=== PATIENT | male | born 1985 | race Caucasian/White ===

== ENCOUNTER 2020-05-01 03:24 | Emergency (ER) | payer OTHER, SELFPAY ==
[2020-05-01] VITALS (19 sets, daily range): BP systolic 139–172; BP diastolic 78–109; PULSE 76–90; RESP 18–33; TEMP 32.9–36.2; O2SAT 96–98
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
[2020-05-01] MEDS: SODIUM CHLORIDE 0.9% 1,000 ML 150 ML IV (03:59)
[2020-05-01] MEDS: propofoL 1,000 MG/100 ML VIAL 10 MG IV (03:59)
[2020-05-01 04:07] LABS: Add Manual Diff / Slide Review NO; Basophils Absolute Auto 100 /uL (0-100); Basophils Percent Auto 0.4 % (0-2); Eosinophils Absolute Auto 100 /uL (0-450); Eosinophils Percent Auto 0.7 % (2-4); Hematocrit 35.2 % (41-53); Hemoglobin 11.6 g/dL (13.5-17.5); Lymphocytes Absolute Auto 1200 /uL (1100-4500); Lymphocytes Percent Auto 7.3 % (25-40); Mean Corpuscular HGB Conc 32.9 % (30-36); Mean Corpuscular Hemoglobin 27.9 PG (26-34); Monocytes Absolute Auto 1200 /uL (0-900); Monocytes Percent Auto 7.4 % (3-14); Neutrophils Absolute Auto 13300 /uL (1500-7000); Neutrophils Percent Auto 84.2 % (50-75); Platelet Count 285 X10^3/uL (150-400); Red Blood Cell Count 4.14 X10^6/uL (4.5-5.9); Red Cell Distribution Width 13.6 % (11.6-14.8); White Blood Cell Count 15.9 X10^3/uL (4.5-11.0)
[2020-05-01 04:12] LABS: Alanine Aminotransferase 19 IU/L (<50); Albumin 3.8 g/dL (3.5-5.0); Albumin Globulin Ratio 1.5 (1.0-2.8); Alkaline Phosphatase 77 U/L (38-126); Aspartate Aminotransferase 30 IU/L (17-59); BUN Creatinine Ratio 22.2 (6-22); Bilirubin Total 0.4 mg/dL (0.2-1.3); Blood Urea Nitrogen 16 mg/dL (9-20); Calcium 8.2 mg/dL (8.4-10.2); Carbon Dioxide 29 mmol/L (22-32); Chloride 102 mmol/L (98-107); Estimated Glomerular Filt Rate > 60.0 mL/min (>60); Globulin 2.6 g/dL (1.7-4.1); Glucose 158 mg/dL (70-100); HEMOLYSIS 19 (0-50); Lipase 45 U/L (23-300); Potassium 3.3 mmol/L (3.4-5.1); Sodium 135 mmol/L (137-145); Total Protein 6.4 g/dL (6.3-8.2)
[2020-05-01 04:17] LABS: UR Morphine/Opiate cutoff 300 Positive (Negative); Ur Creatinine 20 (Normal); Ur Specific Gravity 1.025 (Normal); Urine Amphetamines Positive (Negative); Urine Cocaine Negative (Negative); Urine Methamphetamines Positive (Negative); Urine Tetrahydrocannabinol Negative (Negative); Urine pH 5 (Normal)
[2020-05-01 04:18] LABS: Urine Barbiturates Negative (Negative); Urine Benzodiazepines Positive (Negative); Urine MDMA Positive (Negative); Urine Methadone Negative (Negative); Urine Oxycodone Negative (Negative); Urine Phencyclidine Negative (Negative); Urine Tricyclic Antidepressant Negative (Negative)
[2020-05-01] MEDS: propofoL 1,000 MG/100 ML VIAL 2.136 MG IV (04:34)
[2020-05-01 04:37] LABS: Ethanol (ETOH) < 10 mg/dL
[2020-05-01] MEDS: levETIRAcetam 1,500 MG in SODIUM CHLORIDE 0.9% 100 ML 460 ML IV (04:46)
[2020-05-01 04:58] LABS: Fractionated Inspired Oxygen 30; HCO3 ABG 27 mmol/L (22-26); Oxygen Saturation ABG 97 % (95-100); PCO2 ABG 37.3 mmHg (35-45); PO2 ABG 86 mmHg (80-100); TCO2 ABG 28 mmol/L (21-31); pH ABG 7.47 (7.35-7.45)
--- NOTE | 2020-05-01 05:08 | PC.NURSE ---
[facility] at bedside to receive report and transport patient to [facility].
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
== END 2020-05-01 05:50 | disposition short-term general hospital (02) ==
PROVIDERS: Emergency Provider Emergency Medicine; PCP Internal Medicine
DX: S06.5X9A Traumatic subdural hemorrhage with loss of consciousness of unspecified duration, initial encounter (principal); R56.9 Unspecified convulsions; Y09 Assault by unspecified means
CPT/HCPCS: 36415; 36600; 51701; 70450; 71260; 72125; 74177; 80053; 80305; 80320; 82805; 82962; 83690; 85025; 86850; 86900; 86901; 93005; 94799; 96365; 99285; 99291; 99292; G0390; J1953; J2704; Q9967

== ENCOUNTER 2020-06-18 22:32 | Emergency (ER) | payer OTHER, MEDICAID, SELFPAY ==
[2020-05-01 04:00] VITALS: PULSE 81; RESP 22; O2SAT 97
[2020-06-18 22:41] VITALS: BP 104/71; PULSE 102; RESP 17; TEMP 37.3; O2SAT 100; BMI 20.7
[2020-06-18 23:32] VITALS: BP 124/63; PULSE 103; TEMP 36.6; O2SAT 100
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
--- NOTE | 2020-06-19 00:43 | DI.CT.S_ITS ---
PROCEDURE: CT HEAD/BRAIN WO CON INDICATIONS: pressure prior bleed with aneurysms and cervical stef TECHNIQUE: Noncontrast 4.5 mm thick angled axial sections acquired from the foramen magnum to the vertex, with coronal and sagittal reformats. For radiation dose reduction, the following was used: automated exposure control, adjustment of mA and/or kV according to patient size. COMPARISON: [facility], CT, CT HEAD/BRAIN WO CON, 05/01/2020, 2:28. FINDINGS: Image quality: Exam is somewhat limited given artifact from adjacent hardware along the posterior calvarium. This is worse at the skull base and throughout the cerebellum/brainstem. Brain/CSF spaces: Patient is status post right frontal approach ventriculoperitoneal shunt placement with the tip within the frontal horn of the left lateral ventricle. There is decreased prominence of the lateral ventricle from prior examination with resolution of previously noted hydrocephalus. The previously noted subdural hematoma within the posterior fossa is not well appreciated on today's examination, however evaluation is somewhat limited given artifact from adjacent hardware. No definite acute intracranial hemorrhage. There is mild postsurgical changes of the right frontal lobe adjacent to the catheter. Brain parenchyma is otherwise normal for patient's age. No midline shift or mass effect. Skull and face: Postsurgical changes of posterior fusion of the occiput through the spine with occipital craniotomy. Sinuses: Visualized sinuses and mastoids are clear. IMPRESSION: No acute intra cranial findings. Status post right frontal approach ventriculoperitoneal shunt placement with resolution of hydrocephalus. Postsurgical changes of acceptable craniotomy and cranial cervical fusion. Agree with preliminary report. Dictated by: Lee Gallegos D.O. on 06/19/2020 at 8:32 Approved by: Lee Gallegos D.O. on 06/19/2020 at 8:40
--- NOTE | 2020-06-19 00:43 | DI.RAD.S_ITS ---
PROCEDURE: XR CERVICAL SPINE 2V OR 3V INDICATIONS: Neck pain-stef placement TECHNIQUE: 3 view(s) of the cervical spine were acquired. COMPARISON: [facility], CT, CT CERVICAL SPINE WO CON, 05/01/2020, 2:28. FINDINGS: Bones: No cervical ribs. Patient is status post posterior fusion from the occiput through the superior thoracic spine. No evidence of hardware complication. Mild degenerative changes of the cervical spine with endplate degenerative changes of the midcervical spine and mild intervertebral disc space loss noted C5-C6. The lateral masses of C1 appear intact on the odontoid view given overlap of surgical hardware. No suspicious bony lesions. Soft tissues: No prevertebral soft tissue swelling. Right-sided shunt catheter appears intact within the imaged portions. IMPRESSION: Postsurgical changes as described above without evidence of complication. No acute osseous abnormality. Agree with preliminary report Dictated by: Lee Gallegos D.O. on 06/19/2020 at 7:01 Approved by: Lee Gallegos D.O. on 06/19/2020 at 7:17
[2020-06-19 02:09] VITALS: BP 106/75; PULSE 98; RESP 16; O2SAT 100
== END 2020-06-19 02:10 | disposition home or self-care (01) ==
PROVIDERS: Emergency Provider Emergency Medicine; PCP Internal Medicine
DX: I95.1 Orthostatic hypotension (principal); R51.9 Headache, unspecified; R31.9 Hematuria, unspecified; M54.2 Cervicalgia
CPT/HCPCS: 70450; 72040; 99284

== ENCOUNTER 2021-04-22 10:00 | Emergency (ER) | payer OTHER, MEDICAID, SELFPAY ==
[2020-05-01 04:00] VITALS: PULSE 81; RESP 22; O2SAT 97
[2021-04-22 10:05] VITALS: BP 134/83; PULSE 105; RESP 14; TEMP 36.8; O2SAT 100; BMI 20.3
[2021-04-22] MEDS: LIDO 1%/SOD BICARB 8.4% (10ML) 10 ML SYRINGE INJ (12:40)
--- NOTE | 2021-04-22 12:42 | ED_ITS ---
HPI - Wound/Laceration <Chilango Alexander PA-C - Last Filed: 04/22/21 18:32> General Chief Complaint: Wound/Laceration Stated Complaint: SLICED FINGER Time Seen by Provider: 04/22/21 11:53 Source: patient Mode of arrival: Ambulatory History of Present Illness HPI narrative: Patient is a 35-year-old male presenting to the emergency department today for an evaluation of a right index finger laceration. Patient states that he cut his right index finger on a reasonably this morning attempting to open up a can of paint for a house project. He states that he was able to get the bleeding controlled at home and reports that his tetanus shot is up-to-date. Of note, patient denies pain or injury elsewhere. No fever, chills, chest pain, cough, shortness of breath, nausea, vomiting, diarrhea, abdominal pain, dysuria, hematuria, numbness and tingling in the upper extremities, or any other concerning symptoms reported. No further concerns were voiced at this time. Related Data Allergies Allergy/AdvReac Type Severity Reaction Status Date / Time No Known Drug Allergies Allergy Verified 04/22/21 10:10 Review of Systems <Chilango Alexander PA-C - Last Filed: 04/22/21 18:32> Constitutional Constitutional: Denies chills, Denies fatigue, Denies fever(s), Denies frequent falls, Denies lethargy and Denies weakness Eyes Eyes: Denies loss of vision ENT Ears, Nose, Mouth, and Throat: Denies dizziness and Denies neck pain Cardiovascular Cardiovascular: Denies chest pain, Denies irregular heart rhythm, Denies lightheadedness, Denies palpitations, Denies dyspnea, Denies dyspnea on exertion and Denies orthopnea Respiratory Respiratory: Denies cough, Denies dyspnea, Denies dyspnea on exertion and Denies wheezing Gastrointestinal Gastrointestinal: Denies abdominal pain, Denies change in bowel habits, Denies diarrhea, Denies nausea and Denies vomiting Genitourinary Genitourinary: Denies hematuria, Denies flank pain, Denies urinary incontinence and Denies urinary urgency Musculoskeletal Musculoskeletal: Denies back pain, Denies muscle weakness, Denies neck pain, Denies numbness and Denies tingling Integumentary/Breasts Skin/Breast: Denies pruritus, Denies erythema, Denies rash and Reports wounds (Laceration to right index finger) Neurologic Neurologic: Denies behavioral changes, Denies confusion, Denies dizziness, Denies frequent falls, Denies loss of vision, Denies numbness, Denies tingling and Denies weakness Psychiatric Psychiatric: Denies behavioral changes and Denies confusion Endocrine Endocrine: Denies fatigue and Denies palpitations Allergic/Immunologic Allergic/Immunologic: Denies wheezing Patient History <Chilango Alexander PA-C - Last Filed: 04/22/21 18:32> Social History Smoking Status: Current every day smoker Smoking Status: Current every day smoker alcohol intake frequency: holidays/special occasions only Substance Use Type: does not use Exam <Chilango Alexander PA-C - Last Filed: 04/22/21 18:32> Narrative Exam Narrative: GENERAL: 35 year old patient appears stated age. Well-developed patient, in no acute distress. HEAD: Atraumatic. Normocephalic. EYES: Pupils equal round and reactive. Extraocular motions intact. No scleral icterus. No injection or drainage. ENT: Nose without bleeding, purulent drainage. Throat without erythema, tonsillar hypertrophy or exudate. Airway patent. NECK: Trachea midline. Non tender CARDIOVASCULAR: Regular rate and rhythm without murmurs, gallops, or rubs. RESPIRATORY: Clear to auscultation. Breath sounds equal bilaterally. No wheezes, rales, or rhonchi. GASTROINTESTINAL: Abdomen soft, non-tender, nondistended. EXTREMITIES: No edema or joint tenderness. BACK: Nontender without deformity or crepitance. No flank tenderness. NEURO: AOx3. SKIN: No rash or erythema of visible areas. Linear laceration noted to the right index finger distal to the D IP joint. No active drainage noted or foreign body retained within the laceration. Laceration does not involve the nail bed. No deep tissue structures of. Involved within the laceration. Initial Vital Signs Initial Vital Signs: Vital Signs Temperature 98.3 F 04/22/21 10:05 Pulse Rate 105 H 04/22/21 10:05 Respiratory Rate 14 04/22/21 10:05 Blood Pressure 134/83 04/22/21 10:05 Pulse Oximetry 100 04/22/21 10:05 <Nevin Parnell DO - Last Filed: 04/23/21 08:13> Initial Vital Signs Initial Vital Signs: Vital Signs Temperature 98.3 F 04/22/21 10:05 Pulse Rate 105 H 04/22/21 10:05 Respiratory Rate 14 04/22/21 10:05 Blood Pressure 134/83 04/22/21 10:05 Pulse Oximetry 100 04/22/21 10:05 Procedures <CULLEN Braun Last Filed: 04/22/21 18:32> Laceration Repair Laceration 1: Time of procedure: 12:42 Site: hand (Right index finger) Side (If applicable): right Size (cm): 2.5 Description: linear Depth: simple, single layer Local Anesthetic: lidocaine 1% Amount of anesthesia used (mL): 3 Pre-repair: wound explored, irrigated extensively and deep structures intact Skin layer closed with: nylon Size (cm): 5-0 Number of sutures: 5 Technique: simple, interrupted Course <CULLEN Braun Last Filed: 04/22/21 18:32> Course Course Narrative: Laceration prepped with chlorhexidine and irrigated with normal saline. 1% buffered lidocaine ordered for anesthesia. Orders Ordered: Discontinued Medications Lidocaine/Sodium Bicarbonate (Lido 1%/Sod Bicarb 8.4% (10ml) 10 Ml Syringe) 10 ml INJ NOW ONE Stop: 04/22/21 12:07 Last Admin: 04/22/21 12:40 Dose: 10 ml Documented by: HEATH Vital Signs Vital signs: Vital Signs - 8 hr 04/22/21 12:55 Pulse Rate 85 Respiratory Rate 18 Blood Pressure 106/68 Pulse Oximetry 100 <Nevin Parnell DO - Last Filed: 04/23/21 08:13> Orders Ordered: Discontinued Medications Lidocaine/Sodium Bicarbonate (Lido 1%/Sod Bicarb 8.4% (10ml) 10 Ml Syringe) 10 ml INJ NOW ONE Stop: 04/22/21 12:07 Last Admin: 04/22/21 12:40 Dose: 10 ml Documented by: HEATH Vital Signs Vital signs: Vital Signs - 8 hr 04/22/21 12:55 Pulse Rate 85 Respiratory Rate 18 Blood Pressure 106/68 Pulse Oximetry 100 MDM - Wound/Laceration <CULLEN Braun Last Filed: 04/22/21 18:32> MDM Narrative Medical decision making narrative: Differential diagnosis to consider but not limited to superficial skin laceration versus deep tissue laceration versus abscess versus tendon rupture. Overall, physical examination was reassuring as no deep tissue involvement is apparent there is no foreign body retained within the laceration. Wound was cleaned and irrigated extensively and all deep tissue structures appear intact. Wound edges were approximated closely with 5 nylon sutures size 5-0. Patient tolerated procedure well. Laceration care instructions were provided to the patient, including cleaning the laceration site with soap and water and keeping the area covered while working. I instructed the patient to have the sutures removed within 10-14 days either here in the emergency department, at urgent care, or with his primary care provider. Patient expresses understanding and agrees to plan. He states that this time he is comfortable being discharged home is stable for discharge. Strict return precautions were discussed with the patient prior to discharge. Discharge Plan Departure Patient Disposition: Home Clinical Impression: Laceration of right index finger Instructions: DI for Laceration Repair Activity Restrictions/Additional Instructions: *You have been diagnosed with right index finger laceration *What to do: *Please continue to take your regular medications as directed. [ ] New medication prescriptions sent to your pharmacy: [ ] [ ] New medication written as a paper prescription [X] No new medications given You are evaluated in the emergency department today for a right finger laceration. The laceration was closed with 5 nylon sutures. The sutures should remain in place for 10 14 days, they can be removed here in the ER, at urgent care, or with your primary care provider. Please refrain from soaking the laceration site until it is completely healed. A additionally, please do not place any topical ointments such as triple antibiotic ointment over the laceration site. He can keep the area clean with soap and water and patted dry. I recommended if he rebleeds be working that you keep the laceration site covered until it is completely healed. Please follow-up with the primary care provider within the next 2-3 days for further evaluation. Please do not hesitate to return to the emergency department if you experience fever, discharge from the laceration site, increased swelling from around the laceration site, or any other concerning symptoms. *Please follow up with your primary care provider in 2-3 days, call for an appointment. Let them know you were seen in the Emergency Department and that we ask that you be seen in follow up. We will electronically transmit a record of today's note if your PCP is in our system *If you do not have a primary care provider please contact the [facility] Resource line at [phone]. They will ask some questions about your medical history and help get you set up with a doctor in the community. *Return to Emergency Department if you should have any new, worsening or concerning symptoms, such as fever greater than 101 F, shaking chills, worsening pain, persistent vomiting or other bothersome symptoms. Referrals: Taj Regalado MD [Primary Care Provider] - <Nevin aPrnell DO - Last Filed: 04/23/21 08:13> Cosign ED Attending Cosnnekaature Attestation: I was immediately available in the department for consultation. Documentation has been reviewed.
[2021-04-22 12:55] VITALS: BP 106/68; PULSE 85; RESP 18; O2SAT 100
== END 2021-04-22 12:59 | disposition home or self-care (01) ==
PROVIDERS: Emergency Provider Physician Assistant; PCP Internal Medicine
DX: S61.210A Laceration without foreign body of right index finger without damage to nail, initial encounter (principal); W26.9XXA Contact with unspecified sharp object(s), initial encounter
CPT/HCPCS: 12001; 99283

== ENCOUNTER 2021-05-19 11:02 | Emergency (ER) | payer OTHER, MEDICAID, SELFPAY ==
[2020-05-01 04:00] VITALS: PULSE 81; RESP 22; O2SAT 97
[2021-05-19] VITALS (18 sets, daily range): BP systolic 104–201; BP diastolic 64–100; PULSE 30–115; RESP 18–54; TEMP 36.6–38.3; O2SAT 70–100; BMI 19.3
--- NOTE | 2021-05-19 11:11 | ED.HA ---
HPI - Headache General Chief Complaint: Trauma Stated Complaint: Headache Time Seen by Provider: 05/19/21 11:03 History of Present Illness HPI Narrative: 35-year-old male with prior head and C-spine injury requiring operative intervention at [facility] in April of 2020 presents with EMS for evaluation of headache, vomiting, neck pain and not feeling well for the past week. He states his symptoms started when he was working on a car and the murray of the car hit him on the head. He had a loss of consciousness and has had trouble ever since. He states his headache is severe and generalized in nature, worse with eyes open. He has neck pain and feels like something with his surgery may be abnormal. He denies any numbness, tingling or weakness in his extremities. He denies any loss of control of bowel or bladder. He has no chest pain or shortness of breath. He is activated as a modified trauma. Related Data Previous Rx's Medication Instructions Recorded amoxicillin 875 mg-potassium 1 tab PO Q12H #20 tab 05/19/21 clavulanate 125 mg tablet ketorolac 10 mg tablet 10 mg PO Q6H PRN #14 tab 05/19/21 Allergies Allergy/AdvReac Type Severity Reaction Status Date / Time No Known Drug Allergies Allergy Verified 04/22/21 10:10 Review of Systems Review of Systems Narrative: GENERAL: Denies chills, fatigue, malaise, fever, sweats. HEENT: Denies sinus pain, ear pain, sore throat, difficulty swallowing, dizziness. RESPIRATORY: Denies dyspnea, cough, wheezing, hemoptysis, sputum. CARDIOVASCULAR: Denies chest pain, palpitations, orthopnea, edema, GASTROINTESTINAL: See HPI : Denies dysuria, frequency, incontinence, hematuria, urinary retention. MUSCULOSKELETAL: See HPI SKIN: Denies rash, skin lesions, or other NEUROLOGIC: See HPI PSYCHIATRIC: No concerning psychosocial issues. 12 point review of systems is negative except for those stated above Patient History Social History Smoking Status: Current every day smoker Smoking Status: Current every day smoker alcohol intake frequency: holidays/special occasions only Substance Use Type: does not use Exam Narrative Exam Narrative: GENERAL: [35] year old patient appears stated age. He appears unwell, holding an emesis bag, diaphoretic. GCS 15 HEAD: Atraumatic. Normocephalic. EYES: Pupils equal round and reactive. No hyphema Extraocular motions intact. No scleral icterus. No injection or drainage. ENT: Nose without bleeding, purulent drainage. Throat without erythema, tonsillar hypertrophy or exudate. Airway patent. NECK: Trachea midline. Generalized tenderness, no obvious crepitance, no change with axial load, no step-offs CARDIOVASCULAR: Regular rate and rhythm without murmurs, gallops, or rubs. RESPIRATORY: Clear to auscultation. Breath sounds equal bilaterally. No wheezes, rales, or rhonchi. GASTROINTESTINAL: Abdomen soft, non-tender, nondistended. EXTREMITIES: No edema or joint tenderness. BACK: Nontender without deformity or crepitance. No flank tenderness. NEURO: AOx3. SKIN: No rash or erythema of visible areas Initial Vital Signs Initial Vital Signs: Vital Signs Temperature 101 F H 05/19/21 11:03 Pulse Rate 64 05/19/21 11:03 Respiratory Rate 18 05/19/21 11:03 Blood Pressure 201/100 H 05/19/21 11:03 Pulse Oximetry 100 05/19/21 11:03 Course Orders Ordered: ED Orders 05/19/21 11:12 CT cervical spine wo con Stat CT thoracic spine wo con Stat 05/19/21 11:28 Ictotest Urine Stat Urinalysis and Microscopic Stat Urine Culture Stat Urine Drug Screen, Rapid Stat 05/19/21 11:50 Complete Blood Count AUTO DIFF Stat Comprehensive Metabolic Panel Stat Lipase Stat Magnesium Stat 05/19/21 12:02 CT head/brain wo con Stat 05/19/21 12:30 COVID19 -Nasal swab/Pre-Proc Stat 05/19/21 13:18 Chest [XR chest 1V] Stat 05/19/21 14:29 CT chest abd pel w con Stat 05/19/21 16:14 Throat Culture Stat Discontinued Medications Dexamethasone (Dexamethasone 10 Mg/Ml Vial) 10 mg IV NOW ONE Stop: 05/19/21 16:28 Last Admin: 05/19/21 16:37 Dose: 10 mg Documented by: MILANA Sodium Chloride (Normal Saline 0.9%) 1,000 mls @ 1,000 mls/hr IV BOLUS ONE Stop: 05/19/21 12:11 Last Infusion: 05/19/21 14:22 Dose: 0 mls/hr Documented by: Admin: 05/19/21 11:45 Dose: 1,000 mls/hr Documented by: BESSY Sodium Chloride (Normal Saline 0.9%) 1,000 mls @ 1,000 mls/hr IV BOLUS ONE Stop: 05/19/21 14:15 Last Infusion: 05/19/21 16:40 Dose: 0 mls/hr Documented by: Admin: 05/19/21 14:23 Dose: 1,000 mls/hr Documented by: MILANA Sodium Chloride (Normal Saline 0.9%) 1,000 mls @ 1,000 mls/hr IV BOLUS ONE Stop: 05/19/21 17:26 Last Infusion: 05/19/21 17:34 Dose: 0 mls/hr Documented by: Admin: 05/19/21 16:36 Dose: 1,000 mls/hr Documented by: MILANA Ketorolac Tromethamine (Ketorolac 30 Mg/Ml Vial) 15 mg IV NOW ONE Stop: 05/19/21 13:17 Last Admin: 05/19/21 13:22 Dose: 15 mg Documented by: MILANA Ketorolac Tromethamine (Ketorolac 30 Mg/Ml Vial) 15 mg IV NOW ONE Stop: 05/19/21 16:28 Last Admin: 05/19/21 16:37 Dose: 15 mg Documented by: MILANA Consultations Consultation #1: head CT discussed with exploration geologist Neurosurgery at [facility]. He has reviewed the head CT and states there is no concern, no evidence of shunt malfunction Vital Signs Vital signs: Vital Signs - 8 hr 05/19/21 11:03 05/19/21 11:11 05/19/21 11:38 Temperature 101 F H Pulse Rate 64 30 L 114 H Respiratory Rate 18 Blood Pressure 201/100 H Pulse Oximetry 100 95 96 05/19/21 11:40 05/19/21 12:00 05/19/21 12:11 Temperature Pulse Rate 111 H 111 H 109 H Respiratory Rate 24 Blood Pressure 155/89 H 135/75 Pulse Oximetry 97 98 98 05/19/21 12:30 05/19/21 13:00 05/19/21 13:30 Temperature 97.8 F Pulse Rate 106 H 115 H 94 H Respiratory Rate 22 Blood Pressure 131/89 128/64 135/77 Pulse Oximetry 98 96 97 05/19/21 14:00 05/19/21 14:30 05/19/21 15:03 Temperature Pulse Rate 85 76 65 Respiratory Rate 49 H 54 H Blood Pressure 104/65 108/64 Pulse Oximetry 97 99 70 L 05/19/21 15:19 05/19/21 15:30 05/19/21 16:00 Temperature Pulse Rate 88 73 84 Respiratory Rate 21 24 Blood Pressure 120/67 119/73 129/76 Pulse Oximetry 96 100 99 05/19/21 16:30 05/19/21 17:00 05/19/21 17:30 Temperature Pulse Rate 85 87 106 H Respiratory Rate Blood Pressure 126/85 134/80 143/87 H Pulse Oximetry 99 100 97 MDM - Headache Lab Data Result diagrams: 05/19/21 11:50 05/19/21 11:50 Labs: Lab Results 05/19/21 05/19/21 05/19/21 Range/Units 11:28 11:28 11:50 WBC 26.0 H (4.5-11.0) X10^3/uL RBC 4.51 (4.5-5.9) X10^6/uL Hgb 12.2 L (13.5-17.5) g/dL Hct 36.4 L (41-53) % MCV 80.7 (80-100) fL MCH 27.1 (26-34) PG MCHC 33.5 (30-36) % RDW 14.2 (11.6-14.8) % Plt Count 399 (150-400) X10^3/uL Neut % (Auto) Not Reportable Lymph % (Auto) Not Reportable [place] % (Auto) Not Reportable Eos % (Auto) Not Reportable Baso % (Auto) Not Reportable Lymph # (Auto) Not Reportable [place] # (Auto) Not Reportable Baso # (Auto) Not Reportable Total Counted 100 Seg Neutrophils % 77.0 H (38-70) % Band Neutrophils % 13.0 H (3-7) % Lymphocytes % (Manual) 2.0 L (25-45) % Monocytes % (Manual) 5.0 (2-11) % Metamyelocytes % 3.0 H (-0) % Neutrophils # (Manual) 98052 H (7062-6307) /uL Toxic Granulation Present H RBC Morphology Normal morphology Sodium (137-145) mmol/L Potassium (3.4-5.1) mmol/L Chloride (98-107) mmol/L Carbon Dioxide (22-32) mmol/L BUN (9-20) mg/dL Creatinine (0.66-1.25) mg/dL Estimated GFR (>60) mL/min BUN/Creatinine Ratio (6-22) Glucose (70-100) mg/dL Calcium (8.4-10.2) mg/dL Magnesium (1.6-2.3) mg/dL Total Bilirubin (0.2-1.3) mg/dL AST (17-59) IU/L ALT (<50) IU/L Alkaline Phosphatase (38-126) U/L Total Protein (6.3-8.2) g/dL Albumin (3.5-5.0) g/dL Globulin (1.7-4.1) g/dL Albumin/Globulin Ratio (1.0-2.8) Lipase (23-300) U/L Urine Color Yellow Urine Appearance Clear Urine pH 7.0 (4.5-8.0) Ur Specific Greene 1.020 (1.000-1.035) Urine Protein 3+ H (Negative) Urine Glucose (UA) Negative (Negative) g/dL Urine Ketones Negative (NEGATIVE) Urine Occult Blood 3+ H (Negative) Urine Nitrate Positive H (Negative) Urine Bilirubin 1+ H (NEGATIVE) Ur Bilirubin Confirm Negative (Negative) Urine Urobilinogen 0.2 (0.2) E.U./dL Ur Leukocyte Esterase Negative (NEGATIVE) Urine RBC 10-30/hpf H (0-5/HPF) Urine WBC 1-5/hpf (0-5/HPF) Ur Squamous Epith Cells 0-1 /hpf (0-5/HPF) Amorphous Sediment 2+ Urine Bacteria Few (2-10) H (None) Urine Mucus 2+ H (Negative) Ur Culture Indicated? Specimen cultured U Opiates 300ng/mL cut Negative (Negative) Ur Oxycodone Screen Negative (Negative) Urine Methadone Screen Negative (Negative) Ur Barbiturates Screen Negative (Negative) U Tricyclic Antidepress Negative (Negative) Ur Phencyclidine Scrn Negative (Negative) Ur Amphetamines Screen Positive H (Negative) U Methamphetamines Scrn Positive H (Negative) Ur MDMA Scrn (Ecstasy) Negative (Negative) U Benzodiazepines Scrn Negative (Negative) Urine Cocaine Screen Negative (Negative) U Marijuana (THC) Screen Negative (Negative) SARS-CoV-2 (PCR) (Negative) Group A Strep (PCR) 05/19/21 05/19/21 05/19/21 Range/Units 11:50 12:30 16:14 WBC (4.5-11.0) X10^3/uL RBC (4.5-5.9) X10^6/uL Hgb (13.5-17.5) g/dL Hct (41-53) % MCV (80-100) fL MCH (26-34) PG MCHC (30-36) % RDW (11.6-14.8) % Plt Count (150-400) X10^3/uL Neut % (Auto) Lymph % (Auto) [place] % (Auto) Eos % (Auto) Baso % (Auto) Lymph # (Auto) [place] # (Auto) Baso # (Auto) Total Counted Seg Neutrophils % (38-70) % Band Neutrophils % (3-7) % Lymphocytes % (Manual) (25-45) % Monocytes % (Manual) (2-11) % Metamyelocytes % (-0) % Neutrophils # (Manual) (0805-1997) /uL Toxic Granulation RBC Morphology Sodium 133 L (137-145) mmol/L Potassium 3.6 (3.4-5.1) mmol/L Chloride 90 L (98-107) mmol/L Carbon Dioxide 32 (22-32) mmol/L BUN 12 (9-20) mg/dL Creatinine 0.58 L (0.66-1.25) mg/dL Estimated GFR > 60.0 (>60) mL/min BUN/Creatinine Ratio 20.7 (6-22) Glucose 173 H (70-100) mg/dL Calcium 9.0 (8.4-10.2) mg/dL Magnesium 1.6 (1.6-2.3) mg/dL Total Bilirubin 0.5 (0.2-1.3) mg/dL AST 22 (17-59) IU/L ALT 16 (<50) IU/L Alkaline Phosphatase 175 H (38-126) U/L Total Protein 8.0 (6.3-8.2) g/dL Albumin 3.8 (3.5-5.0) g/dL Globulin 4.2 H (1.7-4.1) g/dL Albumin/Globulin Ratio 0.9 L (1.0-2.8) Lipase < 10 L (23-300) U/L Urine Color Urine Appearance Urine pH (4.5-8.0) Ur Specific Greene (1.000-1.035) Urine Protein (Negative) Urine Glucose (UA) (Negative) g/dL Urine Ketones (NEGATIVE) Urine Occult Blood (Negative) Urine Nitrate (Negative) Urine Bilirubin (NEGATIVE) Ur Bilirubin Confirm (Negative) Urine Urobilinogen (0.2) E.U./dL Ur Leukocyte Esterase (NEGATIVE) Urine RBC (0-5/HPF) Urine WBC (0-5/HPF) Ur Squamous Epith Cells (0-5/HPF) Amorphous Sediment Urine Bacteria (None) Urine Mucus (Negative) Ur Culture Indicated? U Opiates 300ng/mL cut (Negative) Ur Oxycodone Screen (Negative) Urine Methadone Screen (Negative) Ur Barbiturates Screen (Negative) U Tricyclic Antidepress (Negative) Ur Phencyclidine Scrn (Negative) Ur Amphetamines Screen (Negative) U Methamphetamines Scrn (Negative) Ur MDMA Scrn (Ecstasy) (Negative) U Benzodiazepines Scrn (Negative) Urine Cocaine Screen (Negative) U Marijuana (THC) Screen (Negative) SARS-CoV-2 (PCR) Negative (Negative) Group A Strep (PCR) Cancelled Point of Care Testing Rapid Strep A Negative Imaging Data CT scan - head: Radiologist's Impression: Chart Viewer Diagnostics Subcategory All Activity ??:?? All Time ??:?? All Subcategories Filter Laboratory Imaging Microbiology Pathology Blood Bank Tests Cardiovascular Other Specialty DATE TYPE STATUS REF RANGE/AUTHOR Hx Today 11:[address] Signed Jenelle Moscoso Today 11:[address] Signed Luis Robledo Today 11:[address] Signed Jenelle Moscoso 06/19/20 00:[address] Signed Lee Gallegos 06/19/20 00:43 Cervical Spine X-Ray Signed Lee Gallegos 05/01/20 03:[address] Signed Alvin Sheldon 05/01/20 00:00 Chest/Abdomen/Pelvis CT Signed Alvin Sheldon 05/01/20 00:[address] Signed Alvin Sheldon Joshua ED 35, M?1985 MRN#? [id number] REG ER,?Main ED??R12?? 167.64cm 54.431kg BMI: 19.4kg/m? Trauma Acc#? [id number] Resus Status Not Ordered No Hx Avail Special Indicators No Data to Display Home Meds Prescription Monitoring Program No Data to Display Allergies No Known Drug Allergies Problems No Data to Display Vital Signs Today 11:03 BP 201/100?H Pulse 64? Resp 18? Temp 101 F?H O2 Sat 100? Delivery Room Air? Diagnostics Reports Douglas Rosado??35??M??1985 ? Allergy/Adv: No Known Drug Allergies (More??) Close Thoracic Spine CT (Signed) Jenelle Moscoso - 05/19/[address] (Signed) Luis Robledo - 05/19/[address] (Signed) Jenelle Moscoso - 05/19/[address] (Signed) Lee Gallegos - 06/19/20 Cervical Spine X-Ray (Signed) Lee Gallegos - 06/19/[address] (Signed) [place] - 05/01/20 Chest/Abdomen/Pelvis CT (Signed) Alicia Sheldonic - 05/01/[address] (Signed) [place] - 05/01/20 Launch?[place] [address] CT Scan Report Signed Patient: Douglas Rosado MR#: [id number] : 1985 Acct:[id number] Age/Sex: 35 / M Date of Service: 05/19/21 Loc: ED Accession Number: [id number] ?? Procedure: CT head/brain wo con Ordering Provider: Marlon Nava D.O. PROCEDURE:? CT HEAD/BRAIN WO CON ? INDICATIONS:? head injury with LOC and vomiting ? TECHNIQUE:? Noncontrast 4.5 mm thick angled axial sections acquired from the foramen magnum to the vertex, with coronal and sagittal reformats.? For radiation dose reduction, the following was used:? automated exposure control, adjustment of mA and/or kV according to patient size.? ? COMPARISON:? [facility], CT, CT CERVICAL SPINE WO CON, 05/19/2021, 11:27.? [facility], CT, CT HEAD/BRAIN WO CON, 06/19/2020, 0:52. ? FINDINGS:? ? These images demonstrate a significant change in ventricular caliber when compared with the patient's prior study performed 06/19/2020.? The lateral ventricles and 3rd ventricle are significantly decreased in caliber when compared with the prior study.? The right lateral ventricle is essentially slit like.? The left lateral ventricle is moderately effaced as well.? The 3rd ventricle measures no greater than 3-4 mm in maximum transverse dimension compared with up to 7 mm on the prior study.? The cerebral aqueduct is also narrowed when compared with the prior study.? The 4th ventricle is not significantly changed in caliber.? The basilar cisterns are mildly effaced.? There is no significant midline shift, transtentorial herniation, or tonsillar herniation at this time. ? A right frontal approach ventriculostomy is in similar position, again terminating in the anterior roof of the 3rd ventricle.? No appreciable change in appearance of the reservoir or shunt tubing.? ? No abnormal extra-axial fluid collection or acute intracranial hemorrhage identified.? Aj-white matter differentiation is maintained.? Paranasal sinuses and mastoid air cells are clear.? Partially visualized occipito-cervical fusion hardware. ? IMPRESSION: ? Significantly decreased ventricular caliber when compared with the prior study along with new cisternal effacement.? Findings are suggestive of ventricular shunt malfunction as there is no medial hemorrhage, extra-axial fluid collection, or other new space-occupying intracranial mass to explain the decreased ventricular caliber.? Findings were discussed with Dr. Nava at time of dictation.? ? ? Dictated by: Luis Robledo M.D. on 05/19/2021 at 11:51 ? ? Approved by: Luis Robledo M.D. on 05/19/2021 at 11:59 ? CT - cervical spine: Radiologist's Impression: [address] [address] [address] Scan Report Signed Patient: Douglas Rosado MR#: [id number] : 1985 Acct:[id number] Age/Sex: 35 / M Date of Service: 05/19/21 Loc: ED Accession Number: [id number] ?? Procedure: CT cervical spine wo con Ordering Provider: Marlon Nava D.O. PROCEDURE:? CT CERVICAL SPINE WO CON ? INDICATIONS:? neck injury 1 week ago with ongoing pain, surgery 1 year ago ? TECHNIQUE:? Noncontrast 3 mm thick sections acquired from the skull base to the T4 level.? Sagittal and coronal reformats were then constructed.? For radiation dose reduction, the following was used:? automated exposure control, adjustment of mA and/or kV according to patient size.? ? COMPARISON:? [facility], CT, CT HEAD/BRAIN WO CON, 06/19/2020, 0:52.? [facility], CT, CT CERVICAL SPINE WITHOUT CONTRAST, 11/18/2017, 22:28.? [facility], CT, CT HEAD/BRAIN WO CON, 05/01/2020, 2:28.? [facility], CT, CT CERVICAL SPINE WO CON, 05/01/2020, 2:28. ? FINDINGS:? Image quality:? Excellent.? ? Bones:? Posterior fixation extends from the occipital bone to T2.? Patient is status post C1-C7 laminectomy.? No findings to suggest hardware fracture or loosening.? Intervertebral disc spaces are well preserved.? No compression deformities.? No acute fracture or dislocation. ? Soft tissues:? Prevertebral soft tissues are normal in thickness.? No paravertebral hematomas.? No apical pneumothoraces.? Of note, marked streak artifact limits evaluation of the epidural space. ? ? IMPRESSION:? ? 1. Extensive postoperative change.? No acute cervical spine injury.? Dictated by: Jenelle Moscoso M.D. on 05/19/2021 at 11:51 ? ? Approved by: Jenelle Moscoso M.D. on 05/19/2021 at 11:57 ? [facility] Narrative Medical decision making narrative: Patient with complex medical history presents with recent head injury, likely concussion with syncopal episode and vomiting. Head CT has been reviewed with Neurosurgery [facility] and no abnormal findings are noted, no bleeding or shunt malfunction. Neck imaging is equally reassuring and hardware is appropriately in place. Advanced imaging of chest abdomen and pelvis demonstrate likely atypical pneumonia in the bases but no significant findings. Patient feels significant improvement after above-stated therapies. Vitals are reassuring, patient is nonlabored respirations, alert oriented and has a ride on the way. Extensive return precautions discussed and questions answered to his apparent satisfaction Discharge Plan Departure Patient Disposition: Home Clinical Impression: Concussion, Pneumonia, Acute sore throat Instructions: DI for Concussion, Sore Throat, Atypical Pneumonia Activity Restrictions/Additional Instructions: *You have been diagnosed with [concussion, sore throat, pneumonia. As we discussed your history and physical exam are very reassuring. Your head CT shows no significant findings and I have discussed this with Neurosurgery at [facility] who states there is nothing abnormal. The CT of your neck and upper back are unremarkable and your surgical hardware is appropriately in place. The imaging does suggest a mild pneumonia. Finally, your sore throat is not strep. Cultures are pending *What to do: *Please continue to take your regular medications as directed. [ ] New medication prescriptions sent to your pharmacy: [ ] [x ] New medication written as a paper prescription [ ] No new medications given *Please follow up with your primary care provider in 2-3 days, call for an appointment. Let them know you were seen in the Emergency Department and that we ask that you be seen in follow up. We will electronically transmit a record of today's note if your PCP is in our system *If you do not have a primary care provider please contact the [facility] Resource line at [phone]. They will ask some questions about your medical history and help get you set up with a doctor in the community. *Return to Emergency Department if you should have any new, worsening or concerning symptoms, such as [fever greater than 101 F, shaking chills, worsening pain, persistent vomiting or other bothersome symptoms] Prescriptions: New ketorolac 10 mg tablet 10 mg PO Q6H PRN (Reason: pain) Qty: 14 0RF amoxicillin-pot clavulanate 875-125 mg tablet 1 tab PO Q12H Qty: 20 0RF Referrals: Taj Regalado MD [Primary Care Provider] -
--- NOTE | 2021-05-19 11:12 | DI.CT.S_ITS ---
PROCEDURE: CT THORACIC SPINE WO CON INDICATIONS: pain after injury one week ago TECHNIQUE: Noncontrast 3 mm thick sections acquired through the region of interest in the thoracic spine. Sagittal and coronal reformats were then constructed. For radiation dose reduction, the following was used: automated exposure control. COMPARISON: None. FINDINGS: Image quality: Excellent. Bones: The inferior aspect of posterior fixation to the level of T2 is visualized and is intact. No compression deformities. Vertebral body heights and intervertebral disc spaces are preserved throughout the thoracic spine. No acute fracture or dislocation. Soft tissues: No paravertebral masses or hematomas. There are multiple patchy ground-glass airspace opacities visualized bilaterally on this limited view of the lungs. IMPRESSION: 1. No acute thoracic spine injury. 2. Bilateral patchy pulmonary airspace opacities. Differential considerations include aspiration/infection. Neoplasm is considered less likely but cannot be excluded. Nonemergent CT of the chest is recommended to further characterize pulmonary findings. Dictated by: Jenelle Moscoso M.D. on 05/19/2021 at 11:57 Approved by: Jenelle Moscoso M.D. on 05/19/2021 at 12:01
--- NOTE | 2021-05-19 11:12 | DI.CT.S_ITS ---
PROCEDURE: CT CERVICAL SPINE WO CON INDICATIONS: neck injury 1 week ago with ongoing pain, surgery 1 year ago TECHNIQUE: Noncontrast 3 mm thick sections acquired from the skull base to the T4 level. Sagittal and coronal reformats were then constructed. For radiation dose reduction, the following was used: automated exposure control, adjustment of mA and/or kV according to patient size. COMPARISON: [facility], CT, CT HEAD/BRAIN WO CON, 06/19/2020, 0:52. [facility], CT, CT CERVICAL SPINE WITHOUT CONTRAST, 11/18/2017, 22:28. [facility], CT, CT HEAD/BRAIN WO CON, 05/01/2020, 2:28. [facility], CT, CT CERVICAL SPINE WO CON, 05/01/2020, 2:28. FINDINGS: Image quality: Excellent. Bones: Posterior fixation extends from the occipital bone to T2. Patient is status post C1-C7 laminectomy. No findings to suggest hardware fracture or loosening. Intervertebral disc spaces are well preserved. No compression deformities. No acute fracture or dislocation. Soft tissues: Prevertebral soft tissues are normal in thickness. No paravertebral hematomas. No apical pneumothoraces. Of note, marked streak artifact limits evaluation of the epidural space. IMPRESSION: 1. Extensive postoperative change. No acute cervical spine injury. Dictated by: Jenelle Moscoso M.D. on 05/19/2021 at 11:51 Approved by: Jenelle Moscoso M.D. on 05/19/2021 at 11:57
--- NOTE | 2021-05-19 11:12 | DI.CT.S_ITS ---
PROCEDURE: CT HEAD/BRAIN WO CON INDICATIONS: head injury with LOC and vomiting TECHNIQUE: Noncontrast 4.5 mm thick angled axial sections acquired from the foramen magnum to the vertex, with coronal and sagittal reformats. For radiation dose reduction, the following was used: automated exposure control, adjustment of mA and/or kV according to patient size. COMPARISON: [facility], CT, CT CERVICAL SPINE WO CON, 05/19/2021, 11:27. [facility], CT, CT HEAD/BRAIN WO CON, 06/19/2020, 0:52. FINDINGS: These images demonstrate a significant change in ventricular caliber when compared with the patient's prior study performed 06/19/2020. The lateral ventricles and 3rd ventricle are significantly decreased in caliber when compared with the prior study. The right lateral ventricle is essentially slit like. The left lateral ventricle is moderately effaced as well. The 3rd ventricle measures no greater than 3-4 mm in maximum transverse dimension compared with up to 7 mm on the prior study. The cerebral aqueduct is also narrowed when compared with the prior study. The 4th ventricle is not significantly changed in caliber. The basilar cisterns are mildly effaced. There is no significant midline shift, transtentorial herniation, or tonsillar herniation at this time. A right frontal approach ventriculostomy is in similar position, again terminating in the anterior roof of the 3rd ventricle. No appreciable change in appearance of the reservoir or shunt tubing. No abnormal extra-axial fluid collection or acute intracranial hemorrhage identified. Aj-white matter differentiation is maintained. Paranasal sinuses and mastoid air cells are clear. Partially visualized occipito-cervical fusion hardware. IMPRESSION: Significantly decreased ventricular caliber when compared with the prior study along with new cisternal effacement. Findings are suggestive of ventricular shunt malfunction as there is no medial hemorrhage, extra-axial fluid collection, or other new space-occupying intracranial mass to explain the decreased ventricular caliber. Findings were discussed with Dr. Nava at time of dictation. Dictated by: Luis Robledo M.D. on 05/19/2021 at 11:51 Approved by: Luis Robledo M.D. on 05/19/2021 at 11:59
[2021-05-19] MEDS: SODIUM CHLORIDE 0.9% 1,000 ML 1000 ML IV ×3 (11:45→16:36)
[2021-05-19 12:02] LABS: Hematocrit 36.4 % (41-53); Hemoglobin 12.2 g/dL (13.5-17.5); Mean Corpuscular HGB Conc 33.5 % (30-36); Mean Corpuscular Hemoglobin 27.1 PG (26-34); Mean Corpuscular Volume 80.7 fL (80-100); Platelet Count 399 X10^3/uL (150-400); Red Blood Cell Count 4.51 X10^6/uL (4.5-5.9); Red Cell Distribution Width 14.2 % (11.6-14.8)
[2021-05-19 12:05] LABS: Add Manual Diff / Slide Review YES
[2021-05-19 12:15] LABS: Alanine Aminotransferase 16 IU/L (<50); Albumin 3.8 g/dL (3.5-5.0); Albumin Globulin Ratio 0.9 (1.0-2.8); Alkaline Phosphatase 175 U/L (38-126); Aspartate Aminotransferase 22 IU/L (17-59); BUN Creatinine Ratio 20.7 (6-22); Bilirubin Total 0.5 mg/dL (0.2-1.3); Blood Urea Nitrogen 12 mg/dL (9-20); Carbon Dioxide 32 mmol/L (22-32); Chloride 90 mmol/L (98-107); Estimated Glomerular Filt Rate > 60.0 mL/min (>60); Globulin 4.2 g/dL (1.7-4.1); Glucose 173 mg/dL (70-100); HEMOLYSIS 16 (0-50); Lipase < 10 U/L (23-300); Magnesium 1.6 mg/dL (1.6-2.3); Potassium 3.6 mmol/L (3.4-5.1); Sodium 133 mmol/L (137-145)
[2021-05-19 12:23] LABS: Neutrophils Absolute Manual 23400 /uL (3000-5900); Total Cells Counted 100
[2021-05-19 12:24] LABS: RBC Morphology Normal Morphology
[2021-05-19 12:25] LABS: Toxic Granulation Present
--- NOTE | 2021-05-19 13:18 | DI.RAD.S_ITS ---
PROCEDURE: XR CHEST 1V INDICATIONS: fever, weakness TECHNIQUE: One view of the chest was acquired. COMPARISON: None. FINDINGS: Surgical changes and devices: Fixation hardware in cervical spine are seen. Possible right-sided INSTRUCTOR PRODUCT INSPECTION shunt catheter is also noted. Lungs and pleura: There is mild pulmonary vascular congestion. Subtle ill-defined patchy airspace opacities are noted scattered in bilateral lung healy. No pleural effusions or pneumothorax. Mediastinum: Mediastinal contours appear normal. Heart size is normal. Bones and chest wall: No suspicious bony lesions. Overlying soft tissues appear unremarkable. IMPRESSION: Finding is concerning for subtle bilateral patchy infiltrates possibly from atypical viral pneumonia such as COVID-19 infection. Clinical correlation is recommended. No pleural effusion or pneumothorax. Dictated by: Carlos A Marte M.D. on 05/19/2021 at 13:29 Approved by: Carlos A Marte M.D. on 05/19/2021 at 13:30
[2021-05-19] MEDS: KETOROLAC 30 MG/ML VIAL 15 MG IV ×2 (13:22→16:37)
[2021-05-19 13:39] LABS: Appearance Urine UA CLEAR; Bilirubin Urine UA 1+ (NEGATIVE); Color Urine UA YELLOW; Glucose Urine UA NEGATIVE (Negative); Ketones Urine UA NEGATIVE (NEGATIVE); Leukocyte Esterase Urine UA NEGATIVE (NEGATIVE); Nitrite Urine UA POSITIVE (Negative); Occult Blood Urine UA 3+ (Negative); Protein Urine UA 3+ (Negative); Urobilinogen Urine UA 0.2 E.U./dL (0.2)
[2021-05-19 13:40] LABS: COVID19 -Nasal RAPID Negative (Negative)
[2021-05-19 13:47] LABS: UR Morphine/Opiate cutoff 300 Negative (Negative); Ur Creatinine Normal (Normal); Ur Specific Gravity Normal (Normal); Urine Amphetamines Positive (Negative); Urine Barbiturates Negative (Negative); Urine Benzodiazepines Negative (Negative); Urine Cocaine Negative (Negative); Urine MDMA Negative (Negative); Urine Methadone Negative (Negative); Urine Methamphetamines Positive (Negative); Urine Oxycodone Negative (Negative); Urine Phencyclidine Negative (Negative); Urine Tetrahydrocannabinol Negative (Negative); Urine Tricyclic Antidepressant Negative (Negative); Urine pH Normal (Normal)
[2021-05-19 13:56] LABS: Amorphous Sediment Urine 2+; Bacteria Urine Few (2-10); Culture Indicated Urine Specimen Cultured; Ictotest Urine Negative (Negative); Mucus Urine 2+ (Negative); RBC Urine 10-30/HPF (0-5/HPF); Squamous Epithelial Cell Urine 0-1 /HPF (0-5/HPF); WBC Urine 1-5/HPF (0-5/HPF)
--- NOTE | 2021-05-19 14:29 | DI.CT.S_ITS ---
PROCEDURE: CT CHEST ABD PEL W CON INDICATIONS: sepsis, possible pneumonia, persistent vomiting TECHNIQUE: After the administration of oral and intravenous contrast, axial sections acquired from the supraclavicular neck to the pubic symphysis. Coronal and sagittal reformats were performed. For radiation dose reduction, the following was used: automated exposure control, adjustment of mA and/or kV according to patient size. COMPARISON:[facility], CT, CT HEAD/BRAIN WO CON, 05/19/2021, 11:27. [facility], CT, CT THORACIC SPINE WO CON, 05/19/2021, 11:27. [facility], CT, CT CHEST ABD PEL W CON, 05/01/2020, 2:28. FINDINGS: Image quality: Excellent. CHEST: Lower Neck: No enlarged lymph nodes. Thyroid: Within normal limits. Axillae: No enlarged lymph nodes. Chest Wall: Right ELECTRICAL HELPER shunt. The ELECTRICAL HELPER shunt catheter terminates in the left pelvis. Cervical spine hardware partially visualized. T1-T2 0 pedicle screws. Lungs and Airways: Innumerable scattered nodular ground-glass opacities/pulmonary nodules which are new compared to 05/01/2020. For example: Right middle lobe measuring 1.7 cm, (5/141). Right lung base measuring 1.3 cm, (5/230). Left lower lobe measuring 1.4 cm, (5/162). The central airways are clear. There are a few areas of distal mucus airway plugging. Pleura: No pneumothorax or pleural effusions. Heart: Heart size is normal. No pericardial effusion. Thoracic Vessels: The aorta and pulmonary arteries demonstrate normal size. Mediastinum and Arelis: No enlarged lymph nodes. Esophagus: No wall thickening. No hiatal hernia. ABDOMEN: Liver: Hypodensity at the falciform ligament has the appearance of focal fatty infiltration and is unchanged. Gallbladder: Prominent size. No calcified stones seen. Biliary ducts: Unremarkable. Pancreas: Unremarkable. Spleen: Unremarkable. Adrenal Glands: Unremarkable. Kidneys and Ureters: No hydronephrosis. Stomach and Bowel: Stomach, small bowel loops, and colon are unremarkable. Normal appendix. Peritoneum: No abnormal intraperitoneal fluid. No free air. Ventral Wall: No hernia. Abdominal Nodes: No retroperitoneal or mesenteric adenopathy by size criteria. Vessels: Aorta and inferior vena cava are normal in size. PELVIS: Pelvic Organs: Small volume of free fluid in the pelvis. Bladder: Within normal limits. Pelvic Nodes: No enlarged lymph nodes. Miscellaneous: No inguinal hernias are seen. Bones: Cervical/thoracic spine hardware partially visualized. No compression fracture. IMPRESSION: 1. Innumerable scattered nodular ground-glass pulmonary nodules. A larger focus measures 1.7 cm. Favor infectious/inflammatory etiology in this younger patient. These are new compared to CT from last year. -Recommend follow-up CT chest in 3-6 months. 2. Small volume of free fluid in the pelvis. This is presumably related to ELECTRICAL HELPER shunt catheter. 3. Prominent gallbladder. No pericholecystic fluid. Dictated by: Sudheer Dalal M.D. on 05/19/2021 at 15:14 Approved by: Sudheer Dalal M.D. on 05/19/2021 at 15:30
[2021-05-19] MEDS: DEXAMETHASONE 10 MG/ML VIAL IV (16:37)
== END 2021-05-19 17:46 | disposition home or self-care (01) ==
PROVIDERS: Emergency Provider Emergency Medicine; PCP Internal Medicine
DX: S06.0X9A Concussion with loss of consciousness of unspecified duration, initial encounter (principal); J18.9 Pneumonia, unspecified organism; J02.9 Acute pharyngitis, unspecified; N39.0 Urinary tract infection, site not specified; B95.62 Methicillin resistant Staphylococcus aureus infection as the cause of diseases classified elsewhere; F17.200 Nicotine dependence, unspecified, uncomplicated; W22.8XXA Striking against or struck by other objects, initial encounter; Y93.89 Activity, other specified; Z20.822 Contact with and (suspected) exposure to COVID-19
CPT/HCPCS: 36415; 70450; 71045; 71260; 72125; 72128; 74177; 80053; 80305; 81001; 83690; 83735; 85007; 85025; 87070; 87077; 87086; 87147; 87186; 87635; 87880; 96361; 96374; 96375; 96376; 99284; C9803; J1100; J1885